=== PATIENT | male | born 1980 | race American Indian/Alaskan Native ===

== ENCOUNTER 2018-09-28 14:19 | Emergency (ER) | payer SELFPAY ==
[2018-09-28 14:26] VITALS: BP 126/87
--- NOTE | 2018-09-28 14:29 | Event Note ---
ED Screening Note Date of service: 09/28/18 Time: 14:26 ED Screening Note: 38 y/o male comes in for concern for dehydration. Reports that he works 7 days a week. Blood sugar 99. This initial assessment/diagnostic orders/clinical plan/treatment(s) is/are subject to change based on patients health status, clinical progression and re- assessment by fellow clinical providers in the ED. Further treatment and workup at subsequent clinical providers discretion. Patient/guardian urged not to elope from the ED as their condition may be serious if not clinically assessed and managed. Initial orders include:
[2018-09-28 14:59] LABS: Basophils % (Auto) 0.5 % (0.0-1.8); Eosinophils # (Auto) 0.2 K/mm3 (0.0-0.4); Hematocrit 49.1 % (35.5-45.6); Hemoglobin 16.4 gm/dl (11.8-15.2); Lymphocytes # (Auto) 2.2 K/mm3 (1.2-5.4); Lymphocytes % (Auto) 29.4 % (13.4-35.0); Mean Corpuscular HGB Conc 34 % (32-34); Mean Corpuscular Volume 94 fl (84-94); Monocytes % (Auto) 13.4 % (0.0-7.3); Platelet Count 363 K/mm3 (140-440); Red Cell Distribution Width 14.2 % (13.2-15.2)
[2018-09-28 15:19] LABS: BUN/Creatinine Ratio 13; Blood Urea Nitrogen 12 mg/dL (9-20); Calcium 8.9 mg/dL (8.4-10.2); Hemolysis Index 9
--- NOTE | 2018-09-28 16:08 | ED Elopement Review ---
ED Pt Elopement review - Results review Lab results: Laboratory Tests 09/28/18 09/28/18 09/28/18 14:35 14:38 14:38 WBC 7.6 RBC 5.20 H Hgb 16.4 H Hct 49.1 H MCV 94 MCH 32 MCHC 34 RDW 14.2 Plt Count 363 Lymph % (Auto) 29.4 [place] % (Auto) 13.4 H Eos % (Auto) 2.0 Baso % (Auto) 0.5 Lymph # 2.2 [place]asper # 1.0 H Eos # 0.2 Baso # 0.0 Seg Neutrophils % 54.7 Seg Neutrophils # 4.1 Sodium 142 Potassium 3.6 Chloride 103.7 Carbon Dioxide 28 Anion Gap 14 BUN 12 Creatinine 0.9 Estimated GFR > 60 BUN/Creatinine Ratio 13 Glucose 88 POC Glucose 99 Calcium 8.9 - Call Back decision Pt Call Back Decision: No action required
== END 2018-09-28 15:55 | disposition left against medical advice (07) ==
LOC: ED 14:19
DX: E86.0 Dehydration (principal)
CPT/HCPCS: 36415; 80048; 82962; 85025; 99282

== ENCOUNTER 2018-10-03 09:53 | Emergency (ER) | payer OTHER ==
[2018-10-03 10:01] VITALS: BP 123/69
[2018-10-03 10:42] LABS: Basophils % (Auto) 0.7 % (0.0-1.8); Eosinophils % (Auto) 0.7 % (0.0-4.3); Lymphocytes # (Auto) 1.6 K/mm3 (1.2-5.4); Lymphocytes % (Auto) 23.7 % (13.4-35.0); Mean Corpuscular HGB Conc 35 % (32-34); Mean Corpuscular Volume 91 fl (84-94); Monocytes # (Auto) 0.7 K/mm3 (0.0-0.8); Monocytes % (Auto) 10.4 % (0.0-7.3); Platelet Count 427 K/mm3 (140-440); Red Blood Count 5.85 M/mm3 (3.65-5.03); Red Cell Distribution Width 13.8 % (13.2-15.2)
[2018-10-03 10:45] LABS: Hematocrit 53.2 % (35.5-45.6); Hemoglobin 18.8 gm/dl (11.8-15.2)
[2018-10-03 11:03] LABS: BUN/Creatinine Ratio 19; Blood Urea Nitrogen 19 mg/dL (9-20); Calcium 9.6 mg/dL (8.4-10.2); Hemolysis Index 111
[2018-10-03 11:17] LABS: Alanine Aminotransferase 19 units/L (7-56)
[2018-10-03] MEDS ORDERED: ZOFRAN IV ONE (11:55)
[2018-10-03] MEDS ORDERED: NACL 0.9% 1000 ML 1,000 ML IV ONE (11:55)
--- NOTE | 2018-10-03 12:00 | Emergency Department Report ---
Vomiting/Diarrhea - HPI Chief Complaint: Nausea/Vomiting/Diarrhea Stated Complaint: DEHYDRATED/WEAK Time Seen by Provider: 10/03/18 11:47 Duration: 1 week Severity: moderate Nausea/Vomiting Severity: Mild Diarrhea Severity: Mild Symptoms: Yes Watery Diarrhea, Yes Able to Tolerate Fluids, No Bloody diarrhea, No Fever, No Recent Unusual Foods, No Recent Untreated Water, No Recent use of Antibiotics, No Family w/ Similar Symptoms, No Contacts w/ Similar Symptoms, No Rash, No Hematuria, No Recent URI Symptoms Other History: Patient is a 38-year-old male who presents to ED complaining of feeling fatigued because he has been experiencing some nausea and diarrhea for the past week. Patient states he has been under a lot of stress and has a loss of appetite. Patient states he also has not had any unusual foods because superiorly eats. 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 So He Is Usually Very Tired ED Review of Systems ROS: Stated complaint: DEHYDRATED/WEAK Other details as noted in HPI Comment: All other systems reviewed and negative ED Past Medical Hx - Past Medical History Previous Medical History?: No - Surgical History Past Surgical History?: No - Social History Smoking Status: Current Every Day Smoker Substance Use Type: Alcohol, Marijuana - Medications Home Medications: Home Medications Medication Instructions Recorded Confirmed Last Taken Type Ondansetron [Zofran Odt] 4 mg PO Q8HR #20 tab.rapdis 10/03/18 Unknown Rx Vomiting Diarrhea Exam - Exam General: Vital signs noted. No distress. Alert and acting appropriately. HEENT: Yes Moist Mucous Membranes, No Pharyngeal Erythema, No Pharyngeal Exudates, No Rhinorrhea, No Conjuctival Injection, No Frontal Tenderness, No Maxillary Tenderness Neck: No Adenopathy, No Rigidity Lungs: Yes Clear Lung Sounds, Yes Good Air Exchange, No Wheezes, No Stridor, No Cough, No Nasal Flaring, No Retractions, No Use of Accessory Muscles Heart exam: Regular: Yes, Murmur: No, Tachycardia: No Abdomen: Tenderness: No, Peritoneal Signs: No, Distention: No, Hyperactive Bowel sounds: No Skin exam: Rash: No, Edema: No, Normal turgor: Yes Neurologic: Alert and oriented, no deficits. Musculoskeletal: Unremarkable. ED Course Vital Signs 10/03/18 10:00 Temperature 97.4 F L Pulse Rate 80 Respiratory 16 Rate Blood Pressure 123/69 O2 Sat by Pulse 98 Oximetry ED Medical Decision Making - Lab Data Result diagrams: 10/03/18 10:25 10/03/18 10:25 - Medical Decision Making This 38-year-old male presents with gastroenteritis. Patient received 1 L of normal saline and Zofran IV during his ED stay. CBC, BMP within normal limits There was no active vomiting in the ED. Discussed patient to follow up with the primary care physician. Discussed the patient is to increase hydration especially this working outside. Critical care attestation.: If time is entered above; I have spent that time in minutes in the direct care of this critically ill patient, excluding procedure time. ED Disposition Clinical Impression: Fatigue, Acute diarrhea Disposition: DC-01 TO HOME OR SELFCARE Is pt being admited?: No Does the pt Need Aspirin: No Condition: Stable Instructions: Fatigue (ED), Dehydration (ED), Acute Diarrhea (ED) Additional Instructions: Make sure to follow up with the primary care physician as discussed. Get [id number] multivitamins and take daily to post your metabolism. make Sure you get enough rest daily. If you have any worsening symptoms or develop new symptoms please return to ED immediately. Prescriptions: Ondansetron [Zofran Odt] 4 mg PO Q8HR #20 tab.rapdis Referrals: KEM CARRASQUILLO MD [Primary Care Provider] - 3-5 Days [facility] [Outside] - 3-5 Days [facility] [Outside] - 3-5 Days Forms: Work/School Release Form(ED) Time of Disposition: 12:59
== END 2018-10-03 13:46 | disposition home or self-care (01) ==
LOC: ED 09:53
DX: K52.9 Noninfective gastroenteritis and colitis, unspecified (principal); E86.0 Dehydration; R53.83 Other fatigue; F17.200 Nicotine dependence, unspecified, uncomplicated; F12.10 Cannabis abuse, uncomplicated
CPT/HCPCS: 36415; 80053; 85025; 96361; 96374; 99283; J2405; J7030